=== PATIENT | female | born 1975 | race African-American/Black ===

== ENCOUNTER 2017-05-17 23:42 | Emergency (ER) | payer MEDICAID ==
[~2017-05-17] VITALS: Ht 165.1 cm; Wt 93.9 kg
[~2017-05-17 23:42] MED LIST: PREN-88 PO
[2017-05-18 08:37] VITALS: BP 114/68
== END 2017-05-18 08:41 | disposition home or self-care (01) ==
LOC: ER 05-18 07:40
DX: L02.11 Cutaneous abscess of neck (principal); F17.210 Nicotine dependence, cigarettes, uncomplicated; E78.00 Pure hypercholesterolemia, unspecified
CPT/HCPCS: 81025; 99283

== ENCOUNTER 2023-04-30 16:27 | Emergency (ER) | payer MEDICAID, OTHER ==
[~2023-04-30] VITALS: Ht 165.1 cm; Wt 95.5 kg
[2023-04-30 16:34] VITALS: BP 139/89; PULSE 89; RESP 16; TEMP 98.4; O2SAT 100
[2023-04-30] MEDS ORDERED: IBUP-1525 MT (19:42)
[2023-04-30] MEDS ORDERED: TOPUD MT (19:42)
== END 2023-04-30 19:57 | disposition home or self-care (01) ==
LOC: ER 16:27
DX: M79.642 Pain in left hand (principal); Y04.0XXA Assault by unarmed brawl or fight, initial encounter; Y93.89 Activity, other specified; Y92.89 Other specified places as the place of occurrence of the external cause; Y99.8 Other external cause status
CPT/HCPCS: 73120; 81025; 99283